=== PATIENT | female | born 1960 | race American Indian/Alaskan Native ===

== ENCOUNTER → 2019-03-11 | Outpatient (CLI) | payer MEDICARE ==
[2019-03-11 08:14] VITALS: BP 145/67; PULSE 79; RESP 18; TEMP 97; BMI 26.6
--- NOTE | 2019-03-11 08:53 | P.HPOB ---
History of Present Illness H&P Date: 03/11/19 Chief Complaint: The patient is here for her routine gynecologic exam and ma mmogram. This is a 59-year-old with an LMP of February 2018. The patient is used to establish with this office. She is without gynecologic complaints. It has been about 3 years since her last pelvic exam and about 4 years since her last mammogram. She has occasional hot flashes but are not problematic. Review of Systems The patient's weight has been stable over the last year. She denies respiratory, cardiac, or G.I. problems. Past Medical History Past Medical History: Fibromyalgia, Rheumatoid Arthritis (RA) Additional Past Medical History / Comment(s): Osteopenia. 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 History of Any Multi-Drug Resistant Organisms: None Reported Past Surgical History: Cholecystectomy Additional Past Surgical History / Comment(s): Wrist surgery. Colonoscopy 2013(next 10 yrs). Past Psychological History: No Psychological Hx Reported Smoking Status: Former smoker Past Alcohol Use History: Occasional (6 per month) Past Drug Use History: None Reported Additional History: Quit smoking in her 20s. She has been since 1991 and does not work outside of the home. - Past Family History Father Family Medical History: CVA/TIA Mother Family Medical History: COPD ( ) Medications and Allergies Home Medications Medication Instructions Recorded Confirmed Type Adalimumab [Humira] 10 mg SQ 03/11/19 History DULoxetine HCL [Cymbalta] 30 mg PO TID 03/11/19 03/11/19 History HYDROcodone/APAP 10-325MG [[place] 1 tab PO Q4HR PRN 03/11/19 03/11/19 History 10-325] Ibuprofen [Advil] 200 mg PO Q8HR PRN 03/11/19 03/11/19 History Allergies Allergy/AdvReac Type Severity Reaction Status Date / Time No Known Allergies Allergy Unverified 03/11/19 08:07 Exam Vital Signs Temp Pulse Resp BP Pulse Ox 03/11/19 08:11 97.0 F L 79 18 145/67 98 Intake and Output 03/10/19 03/11/19 03/11/19 22:59 06:59 14:59 Other: Weight 66.224 kg Height 5'2", weight 146 pounds, BMI 26.7. This is a well-developed well-nourished white female who is alert and oriented times 3 in no acute distress. HEENT: Within normal limits. NECK: Supple without mass or thyromegaly. CHEST AND LUNGS: Clear to auscultation. HEART: Regular rate and rhythm. BREASTS: Are without mass or discharge. AXILLARY EXAM: Negative for adenopathy. BACK: Negative for CVA tenderness. ABDOMEN: Soft, nontender, without palpable masses. PELVIC EXAM: Normal external genitalia with mild atrophy. Cervix and vagina appear normal with minimal atrophy. There is no unusual discharge. There is no evidence of prolapse. The uterus is midposition, nongravid size and nontender. There are no palpable adnexal masses or tenderness. RECTAL EXAM: rectovaginal exam is negative for mass or tenderness and is negative for occult blood. EXTREMITIES: Nontender. IMPRESSION: 1. 59-year-old menopausal female with normal gynecologic exam. 2. Mild vasomotor symptoms which are not a problem for the patient. 3. History of osteopenia PLAN: 1. Pap smear was performed. 2. Self breast awareness was discussed with the patient. 3. Screening mammogram will be done today. 4. Osteoporosis prevention was discussed. I have stressed the importance of adequate calcium, vitamin D and regular exercise. Recommended amounts of calcium and vitamin D were also discussed. The patient states she has had bone density testing done at [facility] and will continue to do them there. 5. We have discussed her mildly elevated blood pressure. I have recommended that she take her blood pressure on a regular basis and follow up with her primary caregiver for blood pressure elevations. 6. She was advised to return in one year for her annual well woman exam.
--- NOTE | 2019-03-12 10:05 | MM ---
Reason for exam: screening (asymptomatic). Last mammogram was performed 3 years and 7 months ago. History: Patient is postmenopausal. Physical Findings: A clinical breast exam by your physician is recommended on an annual basis and results should be correlated with mammographic findings. MG 3D Screening Mammo W/Cad Bilateral CC and MLO view(s) were taken. Prior study comparison: August 17, 2015, bilateral MG screening mammo w CAD. September 17, 2013, bilateral digital screening mammo w/CAD. The breast tissue is extremely dense which could obscure a lesion on mammography. No suspicious abnormality. No significant changes when compared with prior studies. ASSESSMENT: Negative, BI-RAD 1 RECOMMENDATION: Routine screening mammogram of both breasts in 1 year.
== END ==
LOC: WWCWWP 07:50
PROVIDERS: ATTEND Obstetrics & Gynecology
DX: Z12.31 Encounter for screening mammogram for malignant neoplasm of breast (principal)
CPT/HCPCS: 77063; 77067

== ENCOUNTER → 2020-07-11 | Outpatient (CLI) | payer MEDICARE ==
--- NOTE | 2020-07-11 16:52 | XR ---
EXAMINATION TYPE: XR chest 2V DATE OF EXAM: 07/11/2020 COMPARISON: 06/20/2009 INDICATION: Chronic cough TECHNIQUE: Frontal and lateral views of the chest are obtained. FINDINGS: The heart size is normal. The pulmonary vasculature is normal. Bibasilar infiltrates are present. Correlate for atelectasis and pneumonia.. IMPRESSION: 1. Bibasilar infiltrates
== END | disposition home or self-care (01) ==
LOC: RADXRMAIN 10:53
PROVIDERS: ATTEND Physician Assistant Medical
DX: R91.8 Other nonspecific abnormal finding of lung field (principal); R05 Cough
CPT/HCPCS: 71046

== ENCOUNTER → 2021-03-14 | Outpatient (CLI) | payer MEDICARE ==
[2021-03-14 08:14] VITALS: BP 161/95; PULSE 89; RESP 18; TEMP 98.3
--- NOTE | 2021-03-14 08:49 | P.HPOB ---
History of Present Illness H&P Date: 03/14/21 Chief Complaint: The patient is here for her routine gynecologic exam and ma mmogram. This is a 61-year-old with an LMP of February 2018. The patient is without gynecologic complaints and denies any postmenopausal bleeding. Review of Systems The patient has lost 4 pounds over the last 2 years. She denies respiratory, cardiac, or G.I. problems. Past Medical History Past Medical History: Fibromyalgia, Rheumatoid Arthritis (RA) Additional Past Medical History / Comment(s): Osteopenia. 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 History of Any Multi-Drug Resistant Organisms: None Reported Past Surgical History: Cholecystectomy Additional Past Surgical History / Comment(s): Wrist surgery. Colonoscopy 2013(next 10 yrs). Past Psychological History: No Psychological Hx Reported Smoking Status: Former smoker Past Alcohol Use History: Occasional (8 per month) Additional Past Alcohol Use History / Comment(s): Quit smoking in her 20s. Past Drug Use History: None Reported Additional History: She has been since 1991 and does not work outside of the home. - Past Family History Father Family Medical History: CVA/TIA Mother Family Medical History: COPD Sister(s) Family Medical History: Myocardial Infarction ([place]) Additional Family Medical History / Comment(s): 2 sisters had MIs. Medications and Allergies Home Medications Medication Instructions Recorded Confirmed Type Adalimumab [Humira] 10 mg SQ 03/11/19 History DULoxetine HCL [Cymbalta] 30 mg PO TID 03/11/19 03/11/19 History HYDROcodone/APAP 10-325MG [[place] 1 tab PO Q4HR PRN 03/11/19 03/11/19 History 10-325] Ibuprofen [Advil] 200 mg PO Q8HR PRN 03/11/19 03/11/19 History Allergies Allergy/AdvReac Type Severity Reaction Status Date / Time No Known Allergies Allergy Unverified 03/14/21 08:05 Exam Vital Signs Temp Pulse Resp BP Pulse Ox 03/14/21 08:08 98.3 F 89 18 161/95 96 Intake and Output 03/13/21 03/14/21 03/14/21 22:59 06:59 14:59 Other: Weight 64.41 kg Height 5 feet 2-1/2 inches, weight 142 pounds, BMI 25.6. This is a well-developed well-nourished white female who is alert and oriented times 3 in no acute distress. HEENT: Within normal limits. NECK: Supple without mass or thyromegaly. CHEST AND LUNGS: Clear to auscultation. HEART: Regular rate and rhythm. BREASTS: Are without mass or discharge. AXILLARY EXAM: Negative for adenopathy. BACK: Negative for CVA tenderness. ABDOMEN: Soft, nontender, without palpable masses. PELVIC EXAM: Normal external genitalia with mild atrophy. Cervix and vagina appear normal with mild atrophy. There is no unusual discharge. There is no evidence of prolapse. The uterus is midposition, nongravid size and nontender. There are no palpable adnexal masses or tenderness. RECTAL EXAM: Rectovaginal exam is negative for mass or tenderness and is negative for occult blood. EXTREMITIES: Nontender. IMPRESSION: 1. 61-year-old menopausal female with normal gynecologic exam. 2. History of osteopenia. 3. Elevated blood pressure. PLAN: 1. Pap smear cotest was performed. 2. Self breast awareness was discussed with the patient. 3. Screening mammogram will be done today. 4. Osteoporosis prevention was discussed. I have stressed the importance of adequate calcium, vitamin D and regular exercise. Recommended amounts of calcium and vitamin D were also discussed. She will continue to have her bone density testing done through her PCP as she has done in the past. 5. I have recommended that she check her own blood pressures on a regular basis and follow-up with her PCP for blood pressure elevations. We have discussed that if the blood pressure is not under control, she would be at a greater risk for heart attacks and strokes. She states she will do this. 6. She was advised to return in one year for her annual well woman exam.
--- NOTE | 2021-03-15 10:28 | MM ---
Reason for exam: screening (asymptomatic). Last mammogram was performed 2 years ago. History: Patient is postmenopausal. Physical Findings: A clinical breast exam by your physician is recommended on an annual basis and results should be correlated with mammographic findings. MG 3D Screening Mammo W/Cad Bilateral CC and MLO view(s) were taken. Prior study comparison: March 11, 2019, bilateral MG 3d screening mammo w/cad. August 17, 2015, bilateral MG screening mammo w CAD. The breast tissue is extremely dense which could obscure a lesion on mammography. Stable benign calcifications. There is no discrete abnormality. No significant changes when compared with prior studies. ASSESSMENT: Benign, BI-RAD 2 RECOMMENDATION: Routine screening mammogram of both breasts in 1 year.
== END ==
LOC: WWCWWP 07:49
PROVIDERS: ATTEND Obstetrics & Gynecology
DX: Z12.31 Encounter for screening mammogram for malignant neoplasm of breast (principal); Z01.419 Encounter for gynecological examination (general) (routine) without abnormal findings; R03.0 Elevated blood-pressure reading, without diagnosis of hypertension; M06.9 Rheumatoid arthritis, unspecified; Z87.39 Personal history of other diseases of the musculoskeletal system and connective tissue; Z87.891 Personal history of nicotine dependence
CPT/HCPCS: 77063; 77067

== ENCOUNTER 2022-04-12 09:08 | Day surgery (SDC) | payer MEDICARE ==
[2022-04-11 11:41] VITALS: BMI 25.0
[2022-04-12] MEDS: LACTATED RINGERS 1,000 ML IV SCH ×2 (09:41→11:17)
[2022-04-12 09:50] VITALS: TEMP 97
[2022-04-12] MEDS ORDERED: GLYCOPYRROLATE 0.2 MG/ML 2 ML VIAL ONE (11:18)
[2022-04-12] MEDS ORDERED: PROPOFOL 10 MG/ML 20 ML VIAL IV ONE (11:18)
--- NOTE | 2022-04-12 11:23 | P.GSHP ---
History of Present Illness H&P Date: 04/12/22 Chief Complaint: Screening colonoscopy This a 62-year-old female who presents today for screening colonoscopy. Patient denies a significant GI complaints. Past Medical History Past Medical History: Fibromyalgia, Hyperlipidemia, Hypertension, Rheumatoid Arthritis (RA) Additional Past Medical History / Comment(s): Osteopenia. History of Any Multi-Drug Resistant Organisms: None Reported Past Surgical History: Cholecystectomy, Orthopedic Surgery Additional Past Surgical History / Comment(s): LT Wrist surgery. Colonoscopy 2013(next 10 yrs). Past Anesthesia/Blood Transfusion Reactions: No Reported Reaction Past Psychological History: No Psychological Hx Reported Smoking Status: Former smoker Past Alcohol Use History: Occasional Additional Past Alcohol Use History / Comment(s): Quit smoking in her 20s. Past Drug Use History: None Reported - Past Family History Father Family Medical History: CVA/TIA Mother Family Medical History: COPD Sister(s) Family Medical History: Myocardial Infarction ([place]) Additional Family Medical History / Comment(s): 2 sisters had MIs. Medications and Allergies Home Medications Medication Instructions Recorded Confirmed Type Adalimumab [Humira] 10 mg SQ Q14D 03/11/19 04/11/22 History DULoxetine HCL [Cymbalta] 60 mg PO DAILY 03/11/19 04/11/22 History HYDROcodone/APAP 10-325MG [[place] 1 tab PO Q4HR PRN 03/11/19 04/11/22 History 10-325] Ibuprofen [Advil] 200 mg PO Q8HR PRN 03/11/19 04/11/22 History Cholecalciferol (Vitamin D3) 125 mcg PO DAILY 04/11/22 04/11/22 History [Vitamin D3 (125 MCG = 5,000 IU)] Rosuvastatin [Crestor] 10 mg PO DAILY 04/11/22 04/11/22 History lisinopriL [Zestril] 20 mg PO DAILY 04/11/22 04/11/22 History Allergies Allergy/AdvReac Type Severity Reaction Status Date / Time No Known Allergies Allergy Unverified 04/11/22 11:33 Surgical - Exam Vital Signs Temp Pulse Resp BP Pulse Ox 97 F L 77 20 189/88 98 04/12/22 09:35 04/12/22 09:35 04/12/22 09:35 04/12/22 09:35 04/12/22 09:35 - General well developed, well nourished, no distress - Eyes PERRL - ENT normal pinna - Neck no masses - Respiratory normal expansion - Cardiovascular Rhythm: regular - Abdomen Abdomen: soft, non tender Assessment and Plan Assessment: We'll perform screening colonoscopy.
--- NOTE | 2022-04-12 11:42 | P.OP ---
Date of Procedure: 04/12/22 Preoperative Diagnosis: Screening colonoscopy Postoperative Diagnosis: Mild diverticulosis Procedure(s) Performed: Colonoscopy Anesthesia: MAC Surgeon: Edmar Barillas Pathology: none sent Condition: stable Disposition: PACU Description of Procedure: Patient's placed on the endoscopy table in the lateral position. She received IV sedation. Digital rectal exam was performed. This revealed minimal hemorrhoids. Flexible colonoscope was then placed patient anus and passed throughout the colon. Patient poor colonic prep. The right colon had a significant amount of liquid stool in the colon which prevented examination mucosa. At this point scope withdrawn. The distal right colon and transverse c olon appeared normal. The descending colon there is some mild diverticular changes. Scope was then brought back into the colon and a few diverticula were noted. Scope back the rectum this appeared normal. Scope withdrawn for patient.
[2022-04-12 11:45] VITALS: PULSE 82; RESP 16
[2022-04-12 12:09] VITALS: BP 129/85
== END 2022-04-12 12:31 | disposition home or self-care (01) ==
LOC: ORWHC2ENDO 09:08
PROVIDERS: ATTEND Surgery
DX: Z12.11 Encounter for screening for malignant neoplasm of colon (principal); K57.30 Diverticulosis of large intestine without perforation or abscess without bleeding; E78.5 Hyperlipidemia, unspecified; I10 Essential (primary) hypertension; M06.9 Rheumatoid arthritis, unspecified; M79.7 Fibromyalgia; M85.80 Other specified disorders of bone density and structure, unspecified site; Z79.1 Long term (current) use of non-steroidal anti-inflammatories (NSAID); Z82.49 Family history of ischemic heart disease and other diseases of the circulatory system; Z87.891 Personal history of nicotine dependence; Z90.49 Acquired absence of other specified parts of digestive tract
CPT/HCPCS: 45378; J2704

== ENCOUNTER → 2022-09-18 | Outpatient (CLI) | payer MEDICARE ==
[2022-09-18 14:25] VITALS: BP 125/72; PULSE 83; RESP 17; TEMP 98
--- NOTE | 2022-09-18 15:31 | P.HPOB ---
History of Present Illness H&P Date: 09/18/22 Chief Complaint: The patient is here for her routine gynecologic exam and ma mmogram. This is a 70-year-old with an LMP of 2018. The patient is without gynecologic complaints and denies any postmenopausal bleeding. Her last Pap smear on 03/14/2021 showed ASCUS with negative high-risk HPV testing. Review of Systems The patient has lost 6 pounds over the last year. She denies respiratory, cardiac, or G.I. problems. Past Medical History Past Medical History: Fibromyalgia, Hyperlipidemia, Hypertension, Rheumatoid Arthritis (RA) Additional Past Medical History / Comment(s): Osteopenia. 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 History of Any Multi-Drug Resistant Organisms: None Reported Past Surgical History: Cholecystectomy, Orthopedic Surgery Additional Past Surgical History / Comment(s): LT Wrist surgery. Colonoscopy 2021(next 10 yrs). Past Anesthesia/Blood Transfusion Reactions: No Reported Reaction Past Psychological History: No Psychological Hx Reported Smoking Status: Former smoker Past Alcohol Use History: Occasional (0-2 per month) Additional Past Alcohol Use History / Comment(s): Quit smoking in her 20s. Past Drug Use History: None Reported Additional History: She has been since 1991 and does not work outside the home. - Past Family History Father Family Medical History: CVA/TIA Mother Family Medical History: COPD Sister(s) Family Medical History: Myocardial Infarction ([place]) Additional Family Medical History / Comment(s): 2 sisters had MIs. Medications and Allergies Home Medications Medication Instructions Recorded Confirmed Type Adalimumab [Humira] 10 mg SQ Q14D 03/11/19 09/18/22 History DULoxetine HCL [Cymbalta] 60 mg PO DAILY 03/11/19 09/18/22 History HYDROcodone/APAP 10-325MG [[place] 1 tab PO Q4HR PRN 03/11/19 09/18/22 History 10-325] Ibuprofen [Advil] 200 mg PO Q8HR PRN 03/11/19 09/18/22 History Cholecalciferol (Vitamin D3) 125 mcg PO DAILY 04/11/22 09/18/22 History [Vitamin D3 (125 MCG = 5,000 IU)] Rosuvastatin [Crestor] 10 mg PO DAILY 04/11/22 09/18/22 History lisinopriL [Zestril] 20 mg PO DAILY 04/11/22 09/18/22 History Allergies Allergy/AdvReac Type Severity Reaction Status Date / Time No Known Allergies Allergy Unverified 09/18/22 14:21 Exam Vital Signs Temp Pulse Resp BP Pulse Ox 09/18/22 14:23 98 F 83 17 125/72 98 Intake and Output 09/18/22 09/18/22 09/18/22 06:59 14:59 22:59 Other: Weight 61.689 kg Height 5 feet 2 inches, weight 136 pounds, BMI 24.9. This is a well-developed well-nourished white female who is alert and oriented times 3 in no acute distress. HEENT: Within normal limits. NECK: Supple without mass or thyromegaly. CHEST AND LUNGS: Clear to auscultation. HEART: Regular rate and rhythm. BREASTS: Are without mass or discharge. AXILLARY EXAM: Negative for adenopathy. BACK: Negative for CVA tenderness. ABDOMEN: Soft, nontender, without palpable masses. PELVIC EXAM: Normal external genitalia with mild atrophy. Cervix and vagina appear normal with mild atrophy. There is no unusual discharge. There is no evidence of prolapse. The uterus is midposition, nongravid size and nontender. There are no palpable adnexal masses or tenderness. RECTAL EXAM: Rectovaginal exam is negative for mass or tenderness and is negative for occult blood. EXTREMITIES: Nontender. IMPRESSION: 1. 62-year-old menopausal female with normal gynecologic exam. 2. Previous Pap smear on 03/14/2021 showed ASCUS with negative high-risk HPV testing. 3. Osteopenia. PLAN: 1. Pap smear was deferred. Pap smear cotest will be done in 1 year. 2. Self breast awareness was discussed with the patient. We have also discussed symptoms associated with inflammatory breast cancer. 3. Screening mammogram was done today. 4. Osteoporosis prevention was discussed. I have stressed the importance of adequate calcium, vitamin D and regular exercise. Recommended amounts of calcium and vitamin D were also discussed. Previous bone density testing was done through her PCP. She states it has been more than 2 years and she is due for bone density testing. The order slip was given to the patient for this. 5. She has completed her Covid vaccination series and has received 2 boosters. She also has had Covid in the past. 6. She was advised to return in one year for her annual well woman exam.
--- NOTE | 2022-09-19 08:24 | MM ---
Reason for Exam: Screening (asymptomatic). Last mammogram was performed 1 year(s) and 6 month(s) ago. Patient History: Menarche at age 17. First Full-Term at age 20. Postmenopausal. Risk Values: [place] 5 year model risk: 0.9%. NCI Lifetime model risk: 4.9%. Prior Study Comparison: 08/17/2015 Bilateral Screening Mammogram, [facility]. 03/11/2019 Bilateral Screening Mammogram, [facility]. 03/14/2021 Bilateral Screening Mammogram, [facility]. Tissue Density: The breast tissue is heterogeneously dense. This may lower the sensitivity of mammography. Findings: Analyzed By CAD. New area of distortion upper outer left breast zone B. Additional views are recommended. Scattered benign calcifications noted. Overall Assessment: Incomplete: need additional imaging evaluation, BI-RAD 0 Management: Diagnostic Mammogram of the left breast. A clinical breast exam by your physician is recommended on an annual basis and results should be correlated with mammographic findings. Electronically signed and approved by: Andrew Martinez M.D. Radiologis
== END | disposition home or self-care (01) ==
LOC: RADMAMWWP 13:34
PROVIDERS: ATTEND Obstetrics & Gynecology
DX: Z12.31 Encounter for screening mammogram for malignant neoplasm of breast (principal); I10 Essential (primary) hypertension
CPT/HCPCS: 77063; 77067

== ENCOUNTER → 2022-09-21 | Outpatient (CLI) | payer MEDICARE ==
--- NOTE | 2022-09-21 08:43 | MM ---
Reason for Exam: Additional evaluation requested from abnormal screening. Last screening mammogram was performed less than 1 month ago. Patient History: Menarche at age 17. First Full-Term at age 20. Postmenopausal. Risk Values: [place] 5 year model risk: 0.9%. NCI Lifetime model risk: 4.9%. Prior Study Comparison: 03/11/2019 Bilateral Screening Mammogram, [facility]. 03/14/2021 Bilateral Screening Mammogram, [facility]. 09/18/2022 Bilateral MG 3D screening mammo w/cad, [facility]. Tissue Density: Left: The breast tissue is heterogeneously dense. This may lower the sensitivity of mammography. Findings: Analyzed By CAD. Area of distortion upper outer quadrant left breast 7 cm from the nipple is improved however ultrasound is recommended. Overall Assessment: Incomplete: need additional imaging evaluation, BI-RAD 0 Management: Diagnostic Breast Ultrasound of the left breast. A clinical breast exam by your physician is recommended on an annual basis and results should be correlated with mammographic findings. This exam should not preclude additional follow-up of suspicious palpable abnormalities. Results were given to the patient verbally at the time of exam. Electronically signed and approved by: Andrew Martinez M.D. Radiologis
--- NOTE | 2022-09-21 09:21 | USB ---
Reason for Exam: Additional evaluation requested from abnormal screening. Patient History: Menarche at age 17. First Full-Term at age 20. Postmenopausal. Risk Values: [place] 5 year model risk: 0.9%. NCI Lifetime model risk: 4.9%. Technique: Method: Targeted. Prior Study Comparison: 03/11/2019 Bilateral Screening Mammogram, [facility]. 03/14/2021 Bilateral Screening Mammogram, [facility]. 09/18/2022 Bilateral MG 3D screening mammo w/cad, [facility]. Findings: The upper outer quadrant of the left breast, the axilla of the left breast and the retroareolar of the left breast were scanned. There is an ill-defined area of decreased echogenicity at the left 2:00 position 7 cm from the nipple. Tissue diagnosis is recommended. Overall Assessment: Suspicious, BI-RAD 4 Management: Ultrasound Core Biopsy of the left breast. A clinical breast exam by your physician is recommended on an annual basis and results should be correlated with mammographic findings. This exam should not preclude additional follow-up of suspicious palpable abnormalities. Results were given to the patient verbally at the time of exam. Electronically signed and approved by: Andrew Martinez M.D. Radiologis
== END | disposition home or self-care (01) ==
LOC: RADMAMWWP 08:13
PROVIDERS: ATTEND Obstetrics & Gynecology
DX: R92.8 Other abnormal and inconclusive findings on diagnostic imaging of breast (principal); Z78.0 Asymptomatic menopausal state
CPT/HCPCS: 77065; 76642; G0279; 77061

== ENCOUNTER → 2022-10-03 | Day surgery (SDC) | payer MEDICARE ==
--- NOTE | 2022-10-09 09:49 | MM ---
Reason for Exam: Post Procedure Mammogram. Last screening mammogram was performed less than 1 month ago. Patient History: Menarche at age 17. First Full-Term at age 20. Postmenopausal. Risk Values: [place] 5 year model risk: 0.9%. NCI Lifetime model risk: 4.9%. Prior Study Comparison: 03/14/2021 Bilateral Screening Mammogram, [facility]. 09/18/2022 Bilateral MG 3D screening mammo w/cad, [facility]. 09/21/2022 Left US breast workup limited LT, [facility]. 09/21/2022 Left MG 3D work up w/cad LT, [facility]. Tissue Density: Left: The breast tissue is heterogeneously dense. This may lower the sensitivity of mammography. Pathology Description: Location: 2 o'clock. Marker Left Behind. Needle Type: [employer] Cores: 4 Gauge: 12 The procedure of ultrasound guided core biopsy was explained to the patient. Benefits, alternatives, and risks were discussed. An informed consent was then obtained. The patient was placed in supine positioning for imaging and for the procedure. The overlying skin was prepped and draped in usual sterile fashion. Lidocaine buffered with bicarbonate was used as anesthetic into the skin and subcutaneous tissue up to area of concern in the left 2:00 breast. A trina was made with surgical scalpel. Under ultrasound guidance, a 12-gauge vacuum assisted biopsy gun device was used to obtain 4 core samples. Following this, a biopsy clip was left in lesion. The patient tolerated the procedure well without any immediate complication. The patient was kept in the radiology department for short stay after the procedure and then discharged home in stable condition. Postprocedure mammogram: The patient was transferred to mammography for physician ordered post procedure mammogram for clip placement verification. Impression: Successful, uncomplicated ultrasound guided core biopsy of area of concern in the left 2:00 breast, full pathology results to follow. Pathology Results: Result: Benign, Pseudoangiomatous stromal hyperplasia. 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 Imaging correlation is suggested, as indicated. Overall Assessment: Benign Assessment: MG diagnostic mammo LT wo CAD. - Left: Benign, BI-RAD 2. Management: Diagnostic Mammogram of the left breast in 6 months. Electronically signed and approved by: Andrew Martinez M.D. Radiologis
== END ==
LOC: RADUSWWP 07:37
PROVIDERS: ATTEND Surgery
DX: N60.22 Fibroadenosis of left breast (principal); N60.12 Diffuse cystic mastopathy of left breast
CPT/HCPCS: 88305; 77065; 19083; A4648

== ENCOUNTER → 2022-10-11 | Outpatient (CLI) | payer MEDICARE ==
[2022-10-11 12:57] VITALS: BP 120/72; PULSE 77; RESP 17; TEMP 97.6
== END ==
LOC: WWCWWP 11:47
PROVIDERS: ATTEND Surgery
DX: Z53.9 Procedure and treatment not carried out, unspecified reason (principal)

== ENCOUNTER → 2022-10-24 | Outpatient (CLI) | payer MEDICARE ==
[2022-10-24 08:01] VITALS: BP 164/95; PULSE 77; RESP 17; TEMP 98.3
--- NOTE | 2022-10-24 08:51 | P.GSHP ---
History of Present Illness H&P Date: 10/24/22 Chief Complaint: abnormal left breast mammogram Ivone is a 62 year old white female seen in consultation for Dr. Cooper, Dr. Morales regarding an abnormal left breast mammogram. The patient had a routine mammogram [id number]. A new area of distortion was seen in the upper quadrant of the left breast and additional views were recommended. This was followed by a left breast diagnostic mammogram and ultrasound on [id number]. In the area of concern was noted and recommendation was for an ultrasound-guided core biopsy. There was an ill-defined area of decreased echogenicity in the left breast at the 2 o'clock position 7 cm from the nipple. Recommendation was for ultrasound- guided core biopsy. An ultrasound-guided core biopsy was performed on [id number]. Pathology revealed benign breast tissue, fibrocystic change, and benign suitable angiomatous stromal hyperplasia. She is never had any surgery on her breast in the past. She is not complaining of any trauma or infection in her breast. She does not complain of any nipple discharge or breast pain. Caffeine: 1 cup tea/day nicotine: none chocolate: none BCP: used for about 5 years in her 20's Family History: no cancer Hormonal History: menarche: 17 breat fed: no, age at : 20 menopause: 51 hormones: none Surgical History: gallbladder tubal at 28 Medical History: HTN high cholesterol fibromyalgia Rheumatoid arthritis Social history: Nicotine: Negative Alcohol: Negative Drugs: Negative - Constitutional Constitutional: Denies chills, Denies fever - EENT Comment: wears glasses Eyes: denies blurred vision, denies pain Ears: deny: decreased hearing, tinnitus Ears, nose, mouth and throat: Denies headache, Denies sore throat - Breasts Breasts: bilateral: as per HPI - Cardiovascular Cardiovascular: Denies chest pain, Denies shortness of breath - Respiratory Comment: COVID two weeks ago Respiratory: Denies cough, Denies 7 - Gastrointestinal Gastrointestinal: Reports diarrhea, Denies abdominal pain, Denies nausea, Denies vomiting - Genitourinary (Female) Genitourinary: Denies dysuria, Denies hematuria - Menstruation Menstruation: Reports postmenopausal - Musculoskeletal Musculoskeletal: Reports myalgias - Integumentary Integumentary: Reports rash, Denies pruritus - Neurological Neurological: Denies numbness, Denies weakness - Psychiatric Psychiatric: Denies anxiety, Denies depression - Endocrine Endocrine: Denies fatigue, Denies weight change - Hematologic/Lymphatic Comment: none - Allergic/Immunologic Allergic/Immunologic: Reports seasonal allergies Past Medical History Past Medical History: Fibromyalgia, Hyperlipidemia, Hypertension, Rheumatoid Arthritis (RA) Additional Past Medical History / Comment(s): Osteopenia. 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 History of Any Multi-Drug Resistant Organisms: None Reported Past Surgical History: Cholecystectomy, Orthopedic Surgery, Tubal Ligation Additional Past Surgical History / Comment(s): LT Wrist surgery. Colonoscopy 2021(next 10 yrs). Past Anesthesia/Blood Transfusion Reactions: No Reported Reaction Past Psychological History: No Psychological Hx Reported Additional Psychological History / Comment(s): Cymbalta for Fibromyalgia Smoking Status: Former smoker Past Alcohol Use History: Occasional Additional Past Alcohol Use History / Comment(s): Quit smoking in her 20s. Past Drug Use History: None Reported - Past Family History Father Family Medical History: CVA/TIA Mother Family Medical History: COPD Sister(s) Family Medical History: Myocardial Infarction ([place]) Additional Family Medical History / Comment(s): 2 sisters had MIs. Medications and Allergies Home Medications Medication Instructions Recorded Confirmed Type Adalimumab [Humira] 10 mg SQ Q14D 03/11/19 10/24/22 History DULoxetine HCL [Cymbalta] 60 mg PO DAILY 03/11/19 10/24/22 History HYDROcodone/APAP 10-325MG [[place] 1 tab PO Q4HR PRN 03/11/19 10/24/22 History 10-325] Ibuprofen [Advil] 200 mg PO Q8HR PRN 03/11/19 10/24/22 History Cholecalciferol (Vitamin D3) 125 mcg PO DAILY 04/11/22 10/24/22 History [Vitamin D3 (125 MCG = 5,000 IU)] Rosuvastatin [Crestor] 10 mg PO DAILY 04/11/22 10/24/22 History lisinopriL [Zestril] 20 mg PO DAILY 04/11/22 10/24/22 History Allergies Allergy/AdvReac Type Severity Reaction Status Date / Time No Known Allergies Allergy Unverified 10/24/22 07:58 Surgical - Exam Vital Signs Temp Pulse Resp BP Pulse Ox 98.3 F 77 17 164/95 96 10/24/22 07:59 10/24/22 07:59 10/24/22 07:59 10/24/22 07:59 10/24/22 07:59 BMI: 25.1 - General no distress - Eyes normal ocular movement - ENT no hearing loss - Neck trachea midline - Respiratory normal respiratory effort, clear to auscultation - Cardiovascular Rhythm: regular Heart Sounds: normal: S1, S2 - Abdomen Abdomen: soft, non tender, no guarding, no rigid, no rebound - Integumentary circular rash right lower leg 1.5 cm in diameter - Neurologic no disoriented, no combative - Musculoskeletal normal gait, normal posture - Psychiatric oriented to time, oriented to person, oriented to place, speech is normal, memory intact Breast Exam: BRA: 36C Inspection: Bilateral grade 2 ptosis Palpation: Right breast: Multi-positional exam fibrocystic changes no dominant masses or nodules of concern Right axilla: No adenopathy of concern Left breast: Multi-positional exam slight increased nodularity upper outer quadrant region Left axilla: No adenopathy of concern Results Mammogram and ultrasound reviewed in detail with Dr. Schmitz, there is some concern that there is a tolerated and wide area of concern in the left breast ultrasound near the area of partial which may not have been adequately sampled therefore this is considered to be discordant. Assessment and Plan Assessment: Impression: This discordant left breast ultrasound-guided core biopsy Rheumatoid arthritis Fibromyalgia Skin lesion right leg may represent ringworm Plan: needle localization via ultrasound guaidance for excisional biopsy discordant lesion left breast; possible onco plastic tissue transfer; after discussion with Dr. Schmitz this will be ultrasound guidance of the lesion seen in the breast rather than needle localization of the clip as the clip may have migrated Nystatin to area of concern right leg, patient is going to follow with Dr. Morales regarding this Medical clearance from Dr. Morales Cc: Dr. Remy, Dr. Morales
== END ==
LOC: WWCWWP 07:50
PROVIDERS: ATTEND Surgery
DX: N60.11 Diffuse cystic mastopathy of right breast (principal); N63.21 Unspecified lump in the left breast, upper outer quadrant; M79.7 Fibromyalgia; M06.9 Rheumatoid arthritis, unspecified; Z87.891 Personal history of nicotine dependence

== ENCOUNTER → 2022-11-29 | Outpatient (CLI) | payer MEDICARE ==
--- NOTE | 2022-11-29 12:05 | P.PN ---
Subjective Progress Note Date: 11/29/22 Ivone is a 62 year old white female seen in consultation for Dr. Cooper, Dr. Morales regarding an abnormal left breast mammogram. The patient had a routine mammogram [id number]. A new area of distortion was seen in the upper quadrant of the left breast and additional views were recommended. This was followed by a left breast diagnostic mammogram and ultrasound on [id number]. In the area of concern was noted and recommendation was for an ultrasound-guided core biopsy. There was an ill-defined area of decreased echogenicity in the left breast at the 2 o'clock position 7 cm from the nipple. Recommendation was for ultrasound- guided core biopsy. An ultrasound-guided core biopsy was performed on [id number]. Pathology revealed benign breast tissue, fibrocystic change, and benign suitable angiomatous stromal hyperplasia. She is never had any surgery on her breast in the past. She is not complaining of any trauma or infection in her breast. She does not complain of any nipple discharge or breast pain. The patient has a prescription for [place] for arthritis already at home. Her biopsy results were felt to be discordant. This was reviewed with radiology. Caffeine: 1 cup tea/day nicotine: none chocolate: none BCP: used for about 5 years in her 20's Family History: no cancer Hormonal History: menarche: 17 breat fed: no, age at : 20 menopause: 51 hormones: none Surgical History: gallbladder tubal at 28 Medical History: HTN high cholesterol fibromyalgia Rheumatoid arthritis Social history: Nicotine: Negative Alcohol: Negative Drugs: Negative - Constitutional Constitutional: Denies chills, Denies fever - EENT Comment: wears glasses Eyes: denies blurred vision, denies pain Ears: deny: decreased hearing, tinnitus Ears, nose, mouth and throat: Denies headache, Denies sore throat - Breasts Breasts: bilateral: as per HPI - Cardiovascular Cardiovascular: Denies chest pain, Denies shortness of breath - Respiratory Comment: COVID two weeks ago Respiratory: Denies cough - Gastrointestinal Gastrointestinal: Reports diarrhea, Denies abdominal pain, Denies nausea, Denies vomiting - Genitourinary (Female) Genitourinary: Denies dysuria, Denies hematuria - Menstruation Menstruation: Reports postmenopausal - Musculoskeletal Musculoskeletal: Reports myalgias - Integumentary Integumentary: Reports rash, Denies pruritus - Neurological Neurological: Denies numbness, Denies weakness - Psychiatric Psychiatric: Denies anxiety, Denies depression - Endocrine Endocrine: Denies fatigue, Denies weight change - Hematologic/Lymphatic Comment: none - Allergic/Immunologic Allergic/Immunologic: Reports seasonal allergies Past Medical History Past Medical History: Fibromyalgia, Hyperlipidemia, Hypertension, Rheumatoid Arthritis (RA) Additional Past Medical History / Comment(s): Osteopenia. 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 History of Any Multi-Drug Resistant Organisms: None Reported Past Surgical History: Cholecystectomy, Orthopedic Surgery, Tubal Ligation Additional Past Surgical History / Comment(s): LT Wrist surgery. Colonoscopy 2021(next 10 yrs). Past Anesthesia/Blood Transfusion Reactions: No Reported Reaction Past Psychological History: No Psychological Hx Reported Additional Psychological History / Comment(s): Cymbalta for Fibromyalgia Smoking Status: Former smoker Past Alcohol Use History: Occasional Additional Past Alcohol Use History / Comment(s): Quit smoking in her 20s. Past Drug Use History: None Reported - Past Family History Father Family Medical History: CVA/TIA Mother Family Medical History: COPD Sister(s) Family Medical History: Myocardial Infarction ([place]) Additional Family Medical History / Comment(s): 2 sisters had MIs. Medications and Allergies Home Medications Medication Instructions Recorded Confirmed Type Adalimumab [Humira] 10 mg SQ Q14D 03/11/19 10/24/22 History DULoxetine HCL [Cymbalta] 60 mg PO DAILY 03/11/19 10/24/22 History HYDROcodone/APAP 10-325MG [[place] 1 tab PO Q4HR PRN 03/11/19 10/24/22 History 10-325] Ibuprofen [Advil] 200 mg PO Q8HR PRN 03/11/19 10/24/22 History Cholecalciferol (Vitamin D3) 125 mcg PO DAILY 04/11/22 10/24/22 History [Vitamin D3 (125 MCG = 5,000 IU)] Rosuvastatin [Crestor] 10 mg PO DAILY 04/11/22 10/24/22 History lisinopriL [Zestril] 20 mg PO DAILY 04/11/22 10/24/22 History Allergies Allergy/AdvReac Type Severity Reaction Status Date / Time No Known Allergies Allergy Unverified 10/24/22 07:58 Objective - Constitutional General appearance: Present: cooperative - EENT Eyes: Present: EOMI ENT: Present: hearing grossly normal - Neck Neck: Present: normal ROM - Respiratory Respiratory: bilateral: CTA - Cardiovascular Rhythm: regular Heart sounds: normal: S1, S2 - Gastrointestinal General gastrointestinal: Present: soft - Integumentary Integumentary: Present: normal turgor - Musculoskeletal Musculoskeletal: Present: gait normal - Psychiatric Psychiatric: Present: A&O x's 3, appropriate affect, intact judgment & insight - Additional findings Additional findings: Breast Exam: BRA: 36C Inspection: Bilateral grade 2 ptosis Palpation: Right breast: Multi-positional exam fibrocystic changes no dominant masses or nodules of concern Right axilla: No adenopathy of concern Left breast: Multi-positional exam slight increased nodularity upper outer quadrant region Left axilla: No adenopathy of concern Assessment and Plan Assessment: Impression: discordant left breast ultrasound-guided core biopsy Rheumatoid arthritis Fibromyalgia Skin lesion right leg may represent ringworm/ scored up with nystatin Plan: needle localization via ultrasound guaidance for excisional biopsy discordant lesion left breast; possible onco plastic tissue transfer; after discussion with Dr. Schmitz this will be ultrasound guidance of the lesion seen in the breast rather than needle localization of the clip as the clip may have migrated Nystatin to area of concern right leg, this has resolved Medical clearance from Dr. Morales Cc: Dr. Cooper, Dr. Morales
[2022-11-29 12:16] VITALS: BP 150/79; PULSE 99; RESP 17; TEMP 97.9
== END ==
LOC: WWCWWP 11:55
PROVIDERS: ATTEND Surgery
DX: Z85.3 Personal history of malignant neoplasm of breast (principal); M06.9 Rheumatoid arthritis, unspecified; M79.7 Fibromyalgia; E78.5 Hyperlipidemia, unspecified; I10 Essential (primary) hypertension; M85.80 Other specified disorders of bone density and structure, unspecified site; Z87.891 Personal history of nicotine dependence; Z79.899 Other long term (current) drug therapy

== ENCOUNTER → 2022-12-11 | Day surgery (SDC) | payer MEDICARE ==
[2022-12-06 11:45] VITALS: BMI 25.0
[~2022-12-11] MED LIST: ALPRAZolam 0.5 MG TAB PO PRN; DEXAMETHASONE SOD PHOSPHATE 4 MG/ML 1 ML VIAL IV ONE; HEPARIN SODIUM,PORCINE/PF 5,000 UNIT/0.5 ML SYRINGE SQ PRN; HYDROmorphone 0.5 MG/0.5 ML SYRINGE IVP PRN; LACTATED RINGERS 1,000 ML IV SCH; LIDOCAINE 1% (10MG/ML) FOR IV START INTRADERMA PRN; ONDANSETRON 4 MG/2 ML VIAL IVP ONE; Pre Op ABX Message 1 EACH MISC MISCELLANE ONE
[2022-12-11 11:45] VITALS: RESP 16
[2022-12-11 11:53] LABS: Glucose,Whole Blood 100 mg/dL (70-110)
[2022-12-11 12:54] VITALS: BP 116/72; PULSE 80; TEMP 98.1
--- NOTE | 2022-12-11 13:53 | P.PN ---
Progress Note - Text Progress Note Date: 12/11/22 The patient's case was canceled by radiology today. In an attempt at ultrasound localization of the left breast area of concern could not be well seen. Therefore, it was felt that canceling the case and repeating an ultrasound in 6 months with physician follow-up at that time would be appropriate. The patient was made aware and wishes to proceed in that fashion. CC: Dr. Shaun Morales
--- NOTE | 2022-12-11 14:00 | USB ---
Risk Values: Hanna 5 year model risk: 1.1%. NCI Lifetime model risk: 5.7%. Findings: Real-time imaging the area of concern 7 cm from the nipple was interrogated with grayscale imaging without harmonics on. No target was identified. The decision at that time was made to cancel the procedure and get a six-month follow-up ultrasound. Management: Diagnostic Breast Ultrasound of the left breast in 6 months. Electronically signed and approved by: Eligio Rodriguez DO
== END ==
LOC: OR 11:12
PROVIDERS: ATTEND Surgery
DX: N62 Hypertrophy of breast (principal); I10 Essential (primary) hypertension; E78.00 Pure hypercholesterolemia, unspecified; M79.7 Fibromyalgia; M06.9 Rheumatoid arthritis, unspecified; Z78.0 Asymptomatic menopausal state; Z90.49 Acquired absence of other specified parts of digestive tract; Z98.51 Tubal ligation status; Z98.890 Other specified postprocedural states; Z79.02 Long term (current) use of antithrombotics/antiplatelets; Z86.16 Personal history of COVID-19; Z83.6 Family history of other diseases of the respiratory system; Z82.49 Family history of ischemic heart disease and other diseases of the circulatory system; Z87.891 Personal history of nicotine dependence; F10.20 Alcohol dependence, uncomplicated; Z79.1 Long term (current) use of non-steroidal anti-inflammatories (NSAID); Z79.899 Other long term (current) drug therapy
CPT/HCPCS: 76641; 19125; J1100; J2405

== ENCOUNTER → 2024-04-28 | Outpatient (CLI) | payer MEDICARE, OTHER ==
--- NOTE | 2024-04-28 15:17 | MM ---
Reason for Exam: Hx of benign breast biopsy. Last mammogram was performed 1 year(s) and 7 month(s) ago. Patient History: Menarche at age 17. First Full-Term at age 20. Postmenopausal. 10/03/2022, Benign US biopsy breast VAD LT on the left side. Risk Values: Hanna 5 year model risk: 1.2%. NCI Lifetime model risk: 5.4%. Prior Study Comparison: 01/10/2000 Screening Mammogram, [facility]. 04/25/2007 Bilateral Screening Mammogram, [facility]. 12/19/2011 Bilateral Screening Mammogram, [facility]. 09/17/2013 Bilateral Screening Mammogram, [facility]. 08/17/2015 Bilateral Screening Mammogram, [facility]. 03/11/2019 Bilateral Screening Mammogram, [facility]. 03/14/2021 Bilateral Screening Mammogram, [facility]. 09/18/2022 Bilateral MG 3D screening mammo w/cad, [facility]. 09/21/2022 Left US breast workup limited LT, [facility]. 09/21/2022 Left MG 3D work up w/cad LT, [facility]. 10/03/2022 Left MG diagnostic mammo LT wo CAD., [facility]. Tissue Density: The breasts are heterogeneously dense, which may obscure small masses. Findings: Analyzed By CAD. The pattern is symmetrical. Some subtle distortion is in the outer left breast on the craniocaudal view. This appears to been present previously. No suspicious groups of microcalcifications, spiculated or lobular masses, architectural distortion or other secondary signs of malignancy are mammographically apparent. Overall Assessment: Benign, BI-RAD 2 Management: Screening Mammogram of both breasts in 1 year. A negative mammogram report should not preclude additional follow up of suspicious palpable abnormalities. Patient should continue monthly self breast exam. A clinical breast exam by your physician is recommended on an annual basis and results should be correlated with mammographic findings. Note on Hanna scores and lifetime risk: 1. A Hanna score greater than 3% is considered moderate risk. If this is the case, consider specialist referral to assess eligibility for a risk reducing agent. 2. If overall lifetime risk for the development of breast cancer is 20% or higher, the patient may qualify for future screening with alternating mammogram and breast MRI. Electronically signed and approved by: Kirk Schmitz D.O. Radiologis
== END | disposition home or self-care (01) ==
LOC: RADMAMWWP 14:49
PROVIDERS: ATTEND Obstetrics & Gynecology
DX: R92.333 Mammographic heterogeneous density, bilateral breasts (principal); R92.8 Other abnormal and inconclusive findings on diagnostic imaging of breast; Z78.0 Asymptomatic menopausal state
CPT/HCPCS: 77066; G0279; 77062

== ENCOUNTER → 2024-04-28 | Outpatient (CLI) | payer MEDICARE, OTHER ==
[2024-04-28 14:09] VITALS: BP 159/73; PULSE 80; RESP 17; TEMP 98.5
--- NOTE | 2024-04-28 14:54 | P.HPOB ---
History of Present Illness H&P Date: 04/28/24 Chief Complaint: The patient is here for her routine gynecologic exam and ma mmogram. This is a 64-year-old with an LMP of 2018. The patient is without gynecologic complaints and denies any postmenopausal bleeding. The patient did have an abnormal mammogram about 1-1/2 years ago that did require a left breast workup. The workup was considered suspicious and biopsy was recommended. In November 2022 she went for an ultrasound guided biopsy, but at that time the bill picious area was not seen and the biopsy was canceled. A 6-month breast ultrasound was recommended, which the patient did not do. On 03/14/2021 she had an ASCUS Pap smear with negative high-risk HPV testing. Review of Systems The patient has gained 14 pounds over the last year and a half. She denies respiratory, cardiac, or G.I. problems. Past Medical History Past Medical History: Fibromyalgia, Hyperlipidemia, Hypertension, Rheumatoid Arthritis (RA) Additional Past Medical History / Comment(s): Osteopenia. 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 History of Any Multi-Drug Resistant Organisms: None Reported Past Surgical History: Cholecystectomy, Orthopedic Surgery, Tubal Ligation Additional Past Surgical History / Comment(s): LT Wrist surgery. Colonoscopy 2021(next 10 yrs). Past Anesthesia/Blood Transfusion Reactions: No Reported Reaction Past Psychological History: No Psychological Hx Reported Additional Psychological History / Comment(s): Cymbalta for Fibromyalgia Smoking Status: Former smoker Past Alcohol Use History: Occasional ( 0-3 drinks per month.) Additional Past Alcohol Use History / Comment(s): Quit smoking in her 20s. Past Drug Use History: None Reported Additional History: She has been since 1991 and does not work outside of the home. - Past Family History Father Family Medical History: CVA/TIA Mother Family Medical History: COPD Sister(s) Family Medical History: Myocardial Infarction ([place]) Additional Family Medical History / Comment(s): 2 sisters had MIs. Medications and Allergies Home Medications Medication Instructions Recorded Confirmed Type Adalimumab [Humira] 10 mg SQ Q14D 03/11/19 04/28/24 History DULoxetine HCL [Cymbalta] 60 mg PO QAM 03/11/19 04/28/24 History HYDROcodone/APAP 10-325MG [[place] 1 tab PO Q4HR PRN 03/11/19 04/28/24 History 10-325] Ibuprofen [Advil] 200 mg PO Q8HR PRN 03/11/19 04/28/24 History Cholecalciferol (Vitamin D3) 250 mcg PO DAILY 04/11/22 04/28/24 History [Vitamin D3 (125 MCG = 5,000 IU)] Rosuvastatin [Crestor] 10 mg PO DAILY 04/11/22 04/28/24 History lisinopriL [Zestril] 20 mg PO QAM 04/11/22 04/28/24 History Allergies Allergy/AdvReac Type Severity Reaction Status Date / Time No Known Allergies Allergy Verified 04/28/24 14:02 Exam Vital Signs Temp Pulse Resp BP Pulse Ox 04/28/24 14:04 98.5 F 80 17 159/73 95 Intake and Output 04/27/24 04/28/24 04/28/24 22:59 06:59 14:59 Other: Weight 68.039 kg Height 5 feet 2 inches, weight 150 pounds, BMI 27.4. This is a well-developed well-nourished white female who is alert and oriented times 3 in no acute distress. HEENT: Within normal limits. NECK: Supple without mass or thyromegaly. CHEST AND LUNGS: Clear to auscultation. HEART: Regular rate and rhythm. BREASTS: Are without mass or discharge. AXILLARY EXAM: Negative for adenopathy. BACK: Negative for CVA tenderness. ABDOMEN: Soft, nontender, without palpable masses. PELVIC EXAM: Normal external genitalia with mild atrophy. Cervix and vagina appear normal with mild atrophy. There is no unusual discharge. There is no evidence of prolapse. The uterus is midposition, nongravid size and nontender. There are no palpable adnexal masses or tenderness. RECTAL EXAM: Rectovaginal exam is negative for mass or tenderness and is negative for occult blood. EXTREMITIES: Nontender. IMPRESSION: 1. 64-year-old menopausal female with normal gynecologic exam. 2. Previous ASCUS Pap smear on 03/14/2021 with negative high-risk HPV testing. 3. Previous abnormal mammogram requiring a left breast workup and at the time of the recommended ultrasound-guided biopsy, the suspicious area was not seen and therefore no biopsy was performed. This was in November 2022. Patient did not do the recommended follow-up ultrasound after 6 months. 4. History of osteopenia. PLAN: 1. Pap smear cotest was performed. 2. Self breast awareness was discussed with the patient. We have also discus sed symptoms associated with inflammatory breast cancer. 3. Bilateral diagnostic mammogram will be done today because of the history of the abnormal mammogram and discordant findings where her biopsy was canceled. 4. Osteoporosis prevention was discussed. I have stressed the importance of adequate calcium, vitamin D and regular exercise. Recommended amounts of calcium and vitamin D were also discussed. Bone density testing is done through her PCP, Dr. Morales. She states that was recently done and believes it showed osteopenia. She will continue to do bone density testing through her PCP. 5. She was advised to return in one year for her annual well woman exam.
== END ==
LOC: WWCWWP 13:42
PROVIDERS: ATTEND Obstetrics & Gynecology
DX: Z12.31 Encounter for screening mammogram for malignant neoplasm of breast (principal); M85.80 Other specified disorders of bone density and structure, unspecified site; Z78.0 Asymptomatic menopausal state; Z87.891 Personal history of nicotine dependence